=== PATIENT | male | born 1955 | race Caucasian/White ===

== ENCOUNTER → 2016-12-10 | Outpatient (CLI) | payer OTHER ==
[2015-08-01 15:26] VITALS: BP 128/78
[~2016-12-10] MED LIST: IRON90 MG PO; MICARDIS80 MG PO
== END ==
LOC: LAB 11:39
DX: Z02.4 Encounter for examination for driving license (principal); I10 Essential (primary) hypertension; N05.9 Unspecified nephritic syndrome with unspecified morphologic changes

== ENCOUNTER → 2018-02-15 | Outpatient (CLI) | payer BC ==
[2015-08-01 15:26] VITALS: BP 128/78
[2018-02-15 10:27] LABS: URINE WBC 0 /hpf (0-3)
[2018-02-15 10:51] LABS: HEMATOCRIT 34.3 % (42.0-52.0); HEMOGLOBIN 11.5 g/dL (13.5-18.0); MEAN CELL VOLUME 88 fl (78-100); MEAN CORPUSCULAR HEMOGLOBIN 30 pg (27-31); MEAN CORPUSCULAR HGB CONC 34 g/dL (33-37); PLATELET COUNT 427 K/mm3 (130-400); RED BLOOD COUNT 3.89 M/mm3 (4.20-5.60); RED CELL DISTRIBUTION WIDTH 13.3 % (11.5-14.5); WHITE BLOOD COUNT 8.7 K/mm3 (4.8-10.8)
[2018-02-15 10:52] LABS: CALCIUM 9.9 mg/dL (8.4-10.2)
[2018-02-15 11:07] LABS: URINE APPEARANCE CLEAR; URINE BILIRUBIN NEGATIVE (NEGATIVE); URINE BLOOD 250 ery/uL (NEGATIVE); URINE COLOR YELLOW; URINE GLUCOSE NEGATIVE (NEGATIVE); URINE KETONE NEGATIVE (NEGATIVE); URINE LEUKOCYTE ESTERASE NEGATIVE (NEGATIVE); URINE NITRATE NEGATIVE (NEGATIVE); URINE PROTEIN(semi-quant) NEGATIVE (NEGATIVE); URINE UROBILINOGEN NORMAL (NORMAL)
[2018-02-15 11:33] LABS: BAND 3 % (0-10); LYMPHOCYTE 11 % (20-51); MONOCYTE 5 % (3-10); NEUTROPHILS 81 % (42-75)
== END ==
LOC: LAB 10:14
PROVIDERS: Physician Assistant
DX: N05.9 Unspecified nephritic syndrome with unspecified morphologic changes (principal); R31.29 Other microscopic hematuria; M06.4 Inflammatory polyarthropathy

== ENCOUNTER → 2018-06-10 | Outpatient (CLI) | payer BC ==
[2015-08-01 15:26] VITALS: BP 128/78
== END ==
LOC: RAD 10:54
DX: M17.0 Bilateral primary osteoarthritis of knee (principal); R60.0 Localized edema; N03.9 Chronic nephritic syndrome with unspecified morphologic changes

== ENCOUNTER → 2018-12-07 | Outpatient (CLI) | payer BC ==
[2018-08-15 12:05] VITALS: BP 161/81
[~2018-12-07] MED LIST changes: +NORVASC 10MG10 MG PO; +PREDNISONE20 M1 PO
[2018-12-07 11:38] LABS: EOS % 0.6 % (0.0-4.0); HEMATOCRIT 33.2 % (42.0-52.0); HEMOGLOBIN 10.8 g/dL (13.5-18.0); LYMPH# 0.8 (1.50-4.00); MEAN CELL VOLUME 83 fl (78-100); MEAN CORPUSCULAR HEMOGLOBIN 27 pg (27-31); MEAN CORPUSCULAR HGB CONC 33 g/dL (33-37); MONO # 0.6 (0.20-0.80); NEU # 4.8 (1.40-6.50); PLATELET COUNT 491 K/mm3 (130-400); RED BLOOD COUNT 4.01 M/mm3 (4.20-5.60); RED CELL DISTRIBUTION WIDTH 14.9 % (11.5-14.5); WHITE BLOOD COUNT 6.3 K/mm3 (4.8-10.8)
[2018-12-07 11:48] LABS: POTASSIUM 4.9 mmol/L (3.5-5.1)
[2018-12-07 11:50] LABS: TOTAL PROTEIN 7.8 g/dL (6.2-8.1)
[2018-12-07 11:52] LABS: TOTAL BILIRUBIN 0.3 mg/dL (0.2-1.2)
== END ==
LOC: LAB 11:21
PROVIDERS: Physician Assistant
DX: R60.0 Localized edema (principal); R53.83 Other fatigue; R05 Cough

== ENCOUNTER → 2018-12-21 | Outpatient (CLI) | payer BC ==
[2018-08-15 12:05] VITALS: BP 161/81
[2018-12-21 09:31] LABS: POTASSIUM 4.7 mmol/L (3.5-5.1)
[2018-12-21 09:32] LABS: CALCIUM 10.7 mg/dL (8.3-10.5)
== END ==
LOC: LAB 09:09
PROVIDERS: Physician Assistant
DX: E87.1 Hypo-osmolality and hyponatremia (principal); R60.0 Localized edema; R53.83 Other fatigue

== ENCOUNTER → 2019-02-08 | Outpatient (CLI) | payer BC ==
[2018-08-15 12:05] VITALS: BP 161/81
[2019-02-08 11:26] LABS: HEMATOCRIT 31.9 % (42.0-52.0); HEMOGLOBIN 10.6 g/dL (13.5-18.0)
[2019-02-08 11:36] LABS: POTASSIUM 4.2 mmol/L (3.5-5.1)
[2019-02-08 11:47] LABS: URINE APPEARANCE CLEAR; URINE COLOR YELLOW
[2019-02-08 11:48] LABS: URINE BILIRUBIN NEGATIVE (NEGATIVE); URINE BLOOD 250 ery/uL (NEGATIVE); URINE GLUCOSE NEGATIVE (NEGATIVE); URINE KETONE NEGATIVE (NEGATIVE); URINE LEUKOCYTE ESTERASE NEGATIVE (NEGATIVE); URINE MUCUS PRESENT (NOT PRESENT); URINE NITRATE NEGATIVE (NEGATIVE); URINE PROTEIN(semi-quant) NEGATIVE (NEGATIVE); URINE UROBILINOGEN NORMAL (NORMAL); URINE WBC 0-1 /hpf (0-3)
[2019-02-09 00:06] LABS: CREATININE OTHER SOURCE 16 mg/dL (())
== END ==
LOC: LAB 11:14
PROVIDERS: Internal Medicine Nephrology
DX: I15.8 Other secondary hypertension (principal); D50.9 Iron deficiency anemia, unspecified

== ENCOUNTER → 2019-05-06 | Outpatient (CLI) | payer BC ==
[2018-08-15 12:05] VITALS: BP 161/81
[2019-05-06 10:28] LABS: HEMOGLOBIN 11.6 g/dL (13.5-18.0); MEAN CELL VOLUME 88 fl (78-100); MEAN CORPUSCULAR HEMOGLOBIN 28 pg (27-31); MEAN CORPUSCULAR HGB CONC 32 g/dL (33-37); MEAN PLATELET VOLUME 8.7 fl (7.4-10.4); PLATELET COUNT 379 K/mm3 (130-400); RED BLOOD COUNT 4.11 M/mm3 (4.20-5.60); WHITE BLOOD COUNT 8.3 K/mm3 (4.8-10.8)
[2019-05-06 10:49] LABS: LYMPHOCYTE 9 % (20-51); MONOCYTE 7 % (3-10); NEUTROPHILS 83 % (42-75)
== END ==
LOC: LAB 10:04
PROVIDERS: Physician Assistant
DX: R05 Cough (principal)

== ENCOUNTER 2019-05-24 11:42 | Emergency (ER) | payer BC ==
[~2019-05-24] VITALS: Ht 177.8 cm; Wt 100.0 kg
[2019-05-24 12:46] LABS: HEMATOCRIT 34.6 % (42.0-52.0); HEMOGLOBIN 11.8 g/dL (13.5-18.0); MEAN CELL VOLUME 85 fl (78-100); MEAN CORPUSCULAR HEMOGLOBIN 29 pg (27-31); MEAN CORPUSCULAR HGB CONC 34 g/dL (33-37); MEAN PLATELET VOLUME 8.3 fl (7.4-10.4); PLATELET COUNT 411 K/mm3 (130-400); RED BLOOD COUNT 4.07 M/mm3 (4.20-5.60); RED CELL DISTRIBUTION WIDTH 15.4 % (11.5-14.5); WHITE BLOOD COUNT 10.2 K/mm3 (4.8-10.8)
[2019-05-24 12:56] LABS: ALBUMIN 4.1 g/dL (3.4-4.8); POTASSIUM 4.7 mmol/L (3.5-5.1); SODIUM 128 mmol/L (136-145)
[2019-05-24 12:57] LABS: CALCIUM 9.7 mg/dL (8.3-10.5)
[2019-05-24 12:58] LABS: GLUCOSE 90 mg/dL (75-110); TOTAL PROTEIN 7.7 g/dL (6.2-8.1)
[2019-05-24 12:59] LABS: CARBON DIOXIDE 18 mmol/L (23-31)
[2019-05-24 13:00] LABS: TOTAL BILIRUBIN 0.3 mg/dL (0.2-1.2)
[2019-05-24 13:04] LABS: AST-SGOT 25 U/L (5-34)
[2019-05-24 13:05] LABS: ALT/SGPT 16 U/L (0-55); LYMPHOCYTE 10 % (20-51); MONOCYTE 7 % (3-10); NEUTROPHILS 83 % (42-75)
[2019-05-24 13:12] LABS: TROPONIN-I < 0.03 ng/mL (<0.030)
[2019-05-24 14:00] VITALS: BP 140/74
== END 2019-05-24 13:59 | disposition home or self-care (01) ==
LOC: ED 11:42
PROVIDERS: Nurse Practitioner Family
DX: E87.1 Hypo-osmolality and hyponatremia (principal); R55 Syncope and collapse; I10 Essential (primary) hypertension

== ENCOUNTER → 2019-07-19 | Outpatient (CLI) | payer BC ==
[2019-07-19 11:40] LABS: HEMATOCRIT 34.3 % (42.0-52.0); HEMOGLOBIN 11.5 g/dL (13.5-18.0); MEAN CELL VOLUME 86 fl (78-100); MEAN CORPUSCULAR HEMOGLOBIN 29 pg (27-31); MEAN CORPUSCULAR HGB CONC 34 g/dL (33-37); MEAN PLATELET VOLUME 8.3 fl (7.4-10.4); RED CELL DISTRIBUTION WIDTH 12.9 % (11.5-14.5); WHITE BLOOD COUNT 8.8 K/mm3 (4.8-10.8)
[2019-07-19 11:44] LABS: ALBUMIN 4.1 g/dL (3.4-4.8)
[2019-07-19 11:45] LABS: POTASSIUM 4.5 mmol/L (3.5-5.1)
[2019-07-19 11:46] LABS: CALCIUM 9.7 mg/dL (8.3-10.5)
[2019-07-19 11:47] LABS: TOTAL PROTEIN 8.2 g/dL (6.2-8.1)
[2019-07-19 11:49] LABS: TOTAL BILIRUBIN 0.3 mg/dL (0.2-1.2)
[2019-07-19 11:56] LABS: URINE APPEARANCE CLEAR; URINE COLOR YELLOW; URINE PROTEIN(semi-quant) TRACE mg/dL (NEGATIVE)
[2019-07-19 11:57] LABS: URINE BILIRUBIN NEGATIVE (NEGATIVE); URINE BLOOD 250 ery/uL (NEGATIVE); URINE GLUCOSE NEGATIVE (NEGATIVE); URINE KETONE NEGATIVE (NEGATIVE); URINE LEUKOCYTE ESTERASE NEGATIVE (NEGATIVE); URINE NITRATE NEGATIVE (NEGATIVE); URINE UROBILINOGEN NORMAL (NORMAL)
[2019-07-19 12:00] LABS: PLATELET COUNT 514 K/mm3 (130-400)
[2019-07-19 12:11] LABS: BAND 2 % (0-10); LYMPHOCYTE 12 % (20-51); MONOCYTE 10 % (3-10); NEUTROPHILS 75 % (42-75); PROTHROMBIN TIME 9.6 SECONDS (9.0-12.0)
== END ==
LOC: AMSURD 11:11
PROVIDERS: Physician Assistant
DX: Z01.818 Encounter for other preprocedural examination (principal); M17.11 Unilateral primary osteoarthritis, right knee; I10 Essential (primary) hypertension; M10.9 Gout, unspecified; N03.9 Chronic nephritic syndrome with unspecified morphologic changes

== ENCOUNTER → 2019-08-04 | Outpatient (CLI) | payer BC | LOC: PT 09:53 | DX: Z47.1 Aftercare following joint replacement surgery (principal); Z96.651 Presence of right artificial knee joint ==

== ENCOUNTER 2019-10-04 09:30 | Outpatient (RCR) | payer BC | END 2019-10-04 10:00 | disposition still patient (30) | LOC: PT 09:30 | DX: M25.561 Pain in right knee (principal); Z96.651 Presence of right artificial knee joint; Z98.890 Other specified postprocedural states ==

== ENCOUNTER → 2019-12-27 | Outpatient (CLI) | payer BC ==
[2019-12-27 10:27] LABS: EOS # 0.1 (0.04-0.40); HEMATOCRIT 34.9 % (42.0-52.0); HEMOGLOBIN 11.6 g/dL (13.5-18.0); MEAN CELL VOLUME 81 fl (78-100); MEAN CORPUSCULAR HEMOGLOBIN 27 pg (27-31); MEAN CORPUSCULAR HGB CONC 33 g/dL (33-37); MEAN PLATELET VOLUME 7.8 fl (7.4-10.4); MONO # 0.5 (0.20-0.80); NEU # 3.7 (1.40-6.50); PLATELET COUNT 480 K/mm3 (130-400); RED CELL DISTRIBUTION WIDTH 14.8 % (11.5-14.5); WHITE BLOOD COUNT 5.2 K/mm3 (4.8-10.8)
[2019-12-27 10:34] LABS: ALBUMIN 4.5 g/dL (3.4-4.8)
[2019-12-27 10:35] LABS: POTASSIUM 4.5 mmol/L (3.5-5.1)
[2019-12-27 10:36] LABS: CALCIUM 10.3 mg/dL (8.3-10.5)
[2019-12-27 10:37] LABS: TOTAL PROTEIN 8.9 g/dL (6.2-8.1)
[2019-12-27 10:39] LABS: TOTAL BILIRUBIN 0.4 mg/dL (0.2-1.2)
[2019-12-27 10:41] LABS: LYMPH# 0.7 (1.50-4.00)
[2019-12-27 10:42] LABS: PROTHROMBIN TIME 9.3 SECONDS (9.0-12.0)
[2019-12-27 10:46] LABS: URINE APPEARANCE CLEAR; URINE BILIRUBIN NEGATIVE (NEGATIVE); URINE BLOOD 250 ery/uL (NEGATIVE); URINE COLOR YELLOW; URINE GLUCOSE NEGATIVE (NEGATIVE); URINE KETONE NEGATIVE (NEGATIVE); URINE LEUKOCYTE ESTERASE NEGATIVE (NEGATIVE); URINE NITRATE NEGATIVE (NEGATIVE); URINE PROTEIN(semi-quant) NEGATIVE (NEGATIVE); URINE UROBILINOGEN NORMAL (NORMAL); URINE WBC 0-1 /hpf (0-3)
== END ==
LOC: LAB 09:30
PROVIDERS: Orthopaedic Surgery
DX: Z01.818 Encounter for other preprocedural examination (principal); M17.12 Unilateral primary osteoarthritis, left knee; M19.90 Unspecified osteoarthritis, unspecified site

== ENCOUNTER → 2020-01-03 | Outpatient (CLI) | payer BC ==
[2020-01-03 09:41] LABS: POTASSIUM 5.1 mmol/L (3.5-5.1)
== END ==
LOC: LAB 09:15
PROVIDERS: Physician Assistant
DX: E87.1 Hypo-osmolality and hyponatremia (principal)

== ENCOUNTER → 2020-02-16 | Outpatient (CLI) | payer BC ==
[2020-02-16 14:01] LABS: HEMATOCRIT 30.4 % (42.0-52.0); MEAN CELL VOLUME 83 fl (78-100); MEAN CORPUSCULAR HEMOGLOBIN 27 pg (27-31); MEAN CORPUSCULAR HGB CONC 33 g/dL (33-37); MEAN PLATELET VOLUME 7.9 fl (7.4-10.4); PLATELET COUNT 449 K/mm3 (130-400); RED BLOOD COUNT 3.68 M/mm3 (4.20-5.60); RED CELL DISTRIBUTION WIDTH 14.3 % (11.5-14.5); WHITE BLOOD COUNT 8.5 K/mm3 (4.8-10.8)
[2020-02-16 14:15] LABS: LYMPHOCYTE 10 % (20-51); MONOCYTE 7 % (3-10); NEUTROPHILS 83 % (42-75)
[2020-02-16 15:14] LABS: POTASSIUM 4.8 mmol/L (3.5-5.1)
[2020-02-16 15:15] LABS: CALCIUM 9.8 mg/dL (8.3-10.5)
== END ==
LOC: LAB 13:40
PROVIDERS: Internal Medicine Nephrology
DX: N05.9 Unspecified nephritic syndrome with unspecified morphologic changes (principal); M10.9 Gout, unspecified

== ENCOUNTER → 2020-02-24 | Outpatient (CLI) | payer BC | LOC: LAB 07:55 | DX: M79.10 Myalgia, unspecified site (principal); R19.7 Diarrhea, unspecified; Z20.828 Contact with and (suspected) exposure to other viral communicable diseases ==

== ENCOUNTER 2020-02-28 13:00 | Outpatient (RCR) | payer BC | END 2020-02-28 13:30 | disposition still patient (30) | LOC: PT 13:00 | DX: M25.562 Pain in left knee (principal); Z96.652 Presence of left artificial knee joint ==

== ENCOUNTER → 2020-06-18 | Outpatient (CLI) | payer BC ==
[2020-06-18 10:09] LABS: EOS # 0.1 (0.04-0.40); EOS % 1.3 % (0.0-4.0); HEMATOCRIT 36.2 % (42.0-52.0); HEMOGLOBIN 11.3 g/dL (13.5-18.0); MEAN CELL VOLUME 84 fl (78-100); MEAN CORPUSCULAR HEMOGLOBIN 26 pg (27-31); MEAN CORPUSCULAR HGB CONC 31 g/dL (33-37); MEAN PLATELET VOLUME 8.7 fl (7.4-10.4); MONO # 0.3 (0.20-0.80); NEU # 3.2 (1.40-6.50); PLATELET COUNT 398 K/mm3 (130-400); RED BLOOD COUNT 4.29 M/mm3 (4.20-5.60); RED CELL DISTRIBUTION WIDTH 14.6 % (11.5-14.5); WHITE BLOOD COUNT 4.7 K/mm3 (4.8-10.8)
[2020-06-18 10:11] LABS: ALBUMIN 4.1 g/dL (3.4-4.8); POTASSIUM 4.1 mmol/L (3.5-5.1)
[2020-06-18 10:12] LABS: CALCIUM 9.7 mg/dL (8.3-10.5)
[2020-06-18 10:15] LABS: TOTAL BILIRUBIN 0.4 mg/dL (0.2-1.2)
== END ==
LOC: LAB 09:39
PROVIDERS: Physician Assistant
DX: Z00.00 Encounter for general adult medical examination without abnormal findings (principal); Z13.29 Encounter for screening for other suspected endocrine disorder; Z12.5 Encounter for screening for malignant neoplasm of prostate; E78.5 Hyperlipidemia, unspecified

== ENCOUNTER 2020-09-25 15:19 | Emergency (ER) | payer BC ==
[2020-09-25 16:15] LABS: HEMATOCRIT 30.9 % (42.0-52.0); HEMOGLOBIN 10.3 g/dL (13.5-18.0); MEAN CELL VOLUME 79 fl (78-100); MEAN CORPUSCULAR HEMOGLOBIN 26 pg (27-31); MEAN CORPUSCULAR HGB CONC 33 g/dL (33-37); MEAN PLATELET VOLUME 8.8 fl (7.4-10.4); PLATELET COUNT 368 K/mm3 (130-400); RED BLOOD COUNT 3.92 M/mm3 (4.20-5.60); RED CELL DISTRIBUTION WIDTH 13.8 % (11.5-14.5); WHITE BLOOD COUNT 7.2 K/mm3 (4.8-10.8)
[2020-09-25 16:25] LABS: ALBUMIN 3.9 g/dL (3.4-4.8); POTASSIUM 4.5 mmol/L (3.5-5.1); SODIUM 130 mmol/L (136-145)
[2020-09-25 16:27] LABS: CALCIUM 9.5 mg/dL (8.3-10.5)
[2020-09-25 16:28] LABS: GLUCOSE 86 mg/dL (75-110); TOTAL PROTEIN 7.8 g/dL (6.2-8.1)
[2020-09-25 16:29] LABS: CARBON DIOXIDE 21 mmol/L (23-31); TOTAL BILIRUBIN 0.3 mg/dL (0.2-1.2)
[2020-09-25 16:33] LABS: AST-SGOT 20 U/L (5-34)
[2020-09-25 16:34] LABS: ALT/SGPT 12 U/L (0-55)
[2020-09-25 16:48] LABS: TROPONIN-I < 0.03 ng/mL (<0.030)
[2020-09-25 17:39] LABS: PH-URINE 5.5 (5.0 - 8.0); URINE APPEARANCE HAZY; URINE BILIRUBIN NEGATIVE (NEGATIVE); URINE BLOOD 250 ery/uL (NEGATIVE); URINE COLOR YELLOW; URINE GLUCOSE NEGATIVE (NEGATIVE); URINE KETONE NEGATIVE (NEGATIVE); URINE LEUKOCYTE ESTERASE NEGATIVE (NEGATIVE); URINE NITRATE NEGATIVE (NEGATIVE); URINE PROTEIN(semi-quant) TRACE mg/dL (NEGATIVE); URINE UROBILINOGEN NORMAL (NORMAL); URINE WBC 0-1 /hpf (0-3)
[2020-09-25 17:40] LABS: LYMPHOCYTE 11 % (20-51); MONOCYTE 4 % (3-10); NEUTROPHILS 85 % (42-75)
[2020-09-25 17:41] LABS: D-DIMER 2.55 mg/L FEU (0.15-0.50)
[2020-09-25 18:58] VITALS: BP 130/76
== END 2020-09-25 19:13 | disposition home or self-care (01) ==
LOC: ED 15:19
PROVIDERS: Nurse Practitioner Family
DX: R55 Syncope and collapse (principal); D50.9 Iron deficiency anemia, unspecified; E87.1 Hypo-osmolality and hyponatremia; R94.6 Abnormal results of thyroid function studies; Z20.822 Contact with and (suspected) exposure to COVID-19; Z79.899 Other long term (current) drug therapy
CPT/HCPCS: J7120; Q9967

== ENCOUNTER → 2020-10-04 | Outpatient (CLI) | payer BC ==
[2020-09-25 18:58] VITALS: BP 130/76
== END ==
LOC: RAD 14:50
DX: R55 Syncope and collapse (principal); Z18.9 Retained foreign body fragments, unspecified material
CPT/HCPCS: A9585

== ENCOUNTER → 2020-10-16 | Outpatient (CLI) | payer BC ==
[2020-09-25 18:58] VITALS: BP 130/76
== END ==
LOC: VAS 14:37 → RAD 15:00
DX: R55 Syncope and collapse (principal)

== ENCOUNTER → 2021-02-11 | Outpatient (CLI) | payer BC ==
[2021-02-11 12:26] LABS: POTASSIUM 4.4 mmol/L (3.5-5.1)
[2021-02-11 12:27] LABS: CALCIUM 10.3 mg/dL (8.3-10.5)
== END ==
LOC: LAB 11:19
PROVIDERS: Internal Medicine Nephrology
DX: D50.9 Iron deficiency anemia, unspecified (principal); R80.9 Proteinuria, unspecified; I15.8 Other secondary hypertension

== ENCOUNTER 2021-03-05 09:01 | Outpatient (RCR) | payer BC | END 2021-06-03 | disposition home or self-care (01) | LOC: PT | DX: Z96.659 Presence of unspecified artificial knee joint (principal) ==

== ENCOUNTER 2021-04-02 10:55 | Outpatient (RCR) | payer MEDICARE | END 2021-04-16 17:00 | disposition home or self-care (01) | LOC: PT 10:55 | DX: Z96.659 Presence of unspecified artificial knee joint (principal) ==

== ENCOUNTER → 2021-09-03 | Outpatient (CLI) | payer MEDICARE ==
[2021-09-03 16:59] LABS: BASO # 0.03 K/mm3 (0.02-0.10); EOS # 0.08 K/mm3 (0.04-0.40); EOS % 1.1 % (0.0-4.0); HEMATOCRIT 36.7 % (42.0-52.0); LYMPH# 1.29 K/mm3 (1.50-4.00); MEAN CELL VOLUME 85 fl (78-100); MEAN CORPUSCULAR HEMOGLOBIN 28 pg (27-31); MEAN CORPUSCULAR HGB CONC 33 g/dL (33-37); MEAN PLATELET VOLUME 8.6 fl (7.4-10.4); MONO # 0.45 K/mm3 (0.20-0.80); NEU # 5.58 K/mm3 (1.40-6.50); PLATELET COUNT 312 K/mm3 (130-400); RED BLOOD COUNT 4.31 M/mm3 (4.20-5.60); RED CELL DISTRIBUTION WIDTH 14.3 % (11.5-14.5); WHITE BLOOD COUNT 7.5 K/mm3 (4.8-10.8)
[2021-09-03 17:20] LABS: POTASSIUM 4.5 mmol/L (3.5-5.1)
[2021-09-03 17:21] LABS: ALBUMIN 4.6 g/dL (3.4-4.8)
[2021-09-03 17:22] LABS: CALCIUM 10.2 mg/dL (8.3-10.5)
[2021-09-03 17:23] LABS: TOTAL PROTEIN 8.4 g/dL (6.2-8.1)
[2021-09-03 17:25] LABS: TOTAL BILIRUBIN 0.5 mg/dL (0.2-1.2)
== END ==
LOC: LAB 16:37
PROVIDERS: Physician Assistant
DX: Z00.00 Encounter for general adult medical examination without abnormal findings (principal); Z13.1 Encounter for screening for diabetes mellitus; Z12.5 Encounter for screening for malignant neoplasm of prostate; Z13.29 Encounter for screening for other suspected endocrine disorder; D64.9 Anemia, unspecified; I10 Essential (primary) hypertension; K90.9 Intestinal malabsorption, unspecified; E87.1 Hypo-osmolality and hyponatremia; N08 Glomerular disorders in diseases classified elsewhere; M10.9 Gout, unspecified; E78.5 Hyperlipidemia, unspecified; G47.33 Obstructive sleep apnea (adult) (pediatric); M19.90 Unspecified osteoarthritis, unspecified site

== ENCOUNTER → 2021-12-09 | Outpatient (CLI) | payer MEDICARE ==
[2021-12-09 15:11] LABS: HEMATOCRIT 34.1 % (42.0-52.0); HEMOGLOBIN 11.6 g/dL (13.5-18.0); MEAN PLATELET VOLUME 8.5 fl (7.4-10.4); RED BLOOD COUNT 4.03 M/mm3 (4.20-5.60); RED CELL DISTRIBUTION WIDTH 13.3 % (11.5-14.5); WHITE BLOOD COUNT 8.3 K/mm3 (4.8-10.8)
[2021-12-09 15:17] LABS: POTASSIUM 4.1 mmol/L (3.5-5.1)
[2021-12-09 15:18] LABS: CALCIUM 9.5 mg/dL (8.3-10.5)
[2021-12-09 15:20] LABS: TOTAL PROTEIN 7.1 g/dL (6.2-8.1)
[2021-12-09 15:21] LABS: TOTAL BILIRUBIN 0.4 mg/dL (0.2-1.2)
== END ==
LOC: LAB 14:52
PROVIDERS: Urology
DX: C61 Malignant neoplasm of prostate (principal)

== ENCOUNTER → 2022-01-27 | Outpatient (CLI) | payer MEDICARE | LOC: LAB 12:29 | DX: C61 Malignant neoplasm of prostate (principal) ==

== ENCOUNTER → 2022-02-20 | Outpatient (CLI) | payer MEDICARE ==
[2022-02-20 09:27] LABS: POTASSIUM 4.6 mmol/L (3.5-5.1)
[2022-02-20 09:28] LABS: CALCIUM 9.8 mg/dL (8.3-10.5)
== END ==
LOC: LAB 02-19 09:17
PROVIDERS: Internal Medicine Nephrology
DX: R80.9 Proteinuria, unspecified (principal); R31.29 Other microscopic hematuria; M06.4 Inflammatory polyarthropathy; J91.8 Pleural effusion in other conditions classified elsewhere; I15.8 Other secondary hypertension

== ENCOUNTER → 2022-04-15 | Outpatient (CLI) | payer MEDICARE | LOC: RAD 15:47 | DX: Z01.818 Encounter for other preprocedural examination (principal); M21.611 Bunion of right foot; M20.61 Acquired deformities of toe(s), unspecified, right foot; M19.071 Primary osteoarthritis, right ankle and foot; M10.9 Gout, unspecified ==

== ENCOUNTER → 2022-05-06 | Outpatient (CLI) | payer MEDICARE | LOC: LAB 11:14 | DX: C61 Malignant neoplasm of prostate (principal); R97.20 Elevated prostate specific antigen [PSA] ==

== ENCOUNTER → 2022-07-29 | Outpatient (CLI) | payer MEDICARE | LOC: LAB 14:32 | DX: C61 Malignant neoplasm of prostate (principal) ==

== ENCOUNTER → 2023-06-03 | Outpatient (CLI) | payer MEDICARE | LOC: LAB 10:20 | DX: Z85.46 Personal history of malignant neoplasm of prostate (principal) ==

== ENCOUNTER → 2023-08-21 | Outpatient (CLI) | payer MEDICARE | LOC: RAD 10:09 | DX: R10.2 Pelvic and perineal pain (principal) ==

== ENCOUNTER → 2023-11-03 | Outpatient (CLI) | payer MEDICARE | LOC: RAD 13:41 | DX: M16.12 Unilateral primary osteoarthritis, left hip (principal) ==

== ENCOUNTER → 2023-11-24 | Outpatient (CLI) | payer MEDICARE ==
[2023-11-24 10:53] LABS: BASO # 0.04 K/mm3 (0.02-0.10); EOS % 1.4 % (0.0-4.0); HEMATOCRIT 38.8 % (42.0-52.0); HEMOGLOBIN 12.9 g/dL (13.5-18.0); LYMPH# 1.58 K/mm3 (1.50-4.00); MEAN CELL VOLUME 90 fl (78-100); MEAN CORPUSCULAR HEMOGLOBIN 30 pg (27-31); MEAN CORPUSCULAR HGB CONC 33 g/dL (33-37); MEAN PLATELET VOLUME 8.8 fl (7.4-10.4); MONO # 0.52 K/mm3 (0.20-0.80); NEU # 5.13 K/mm3 (1.40-6.50); PLATELET COUNT 293 K/mm3 (130-400); RED BLOOD COUNT 4.32 M/mm3 (4.20-5.60); WHITE BLOOD COUNT 7.4 K/mm3 (4.8-10.8)
[2023-11-24 11:04] LABS: ALBUMIN 4.6 g/dL (3.4-4.8)
[2023-11-24 11:06] LABS: TOTAL PROTEIN 7.7 g/dL (6.2-8.1)
[2023-11-24 11:08] LABS: TOTAL BILIRUBIN 0.6 mg/dL (0.2-1.2)
== END ==
LOC: LAB 10:40
PROVIDERS: Physician Assistant
DX: Z13.1 Encounter for screening for diabetes mellitus (principal); I10 Essential (primary) hypertension; M10.9 Gout, unspecified; E78.5 Hyperlipidemia, unspecified; D64.9 Anemia, unspecified; R97.20 Elevated prostate specific antigen [PSA]

== ENCOUNTER → 2023-12-14 | Outpatient (CLI) | payer MEDICARE | LOC: RAD 10:54 → MAMMO 11:00 | DX: Z13.820 Encounter for screening for osteoporosis (principal) ==

== ENCOUNTER → 2024-02-16 | Outpatient (CLI) | payer MEDICARE ==
[2024-02-16 16:58] LABS: CALCIUM 10.6 mg/dL (8.3-10.5)
== END ==
LOC: LAB 16:34
PROVIDERS: Internal Medicine Nephrology
DX: M06.4 Inflammatory polyarthropathy (principal); R80.9 Proteinuria, unspecified; J91.8 Pleural effusion in other conditions classified elsewhere; I15.8 Other secondary hypertension

== ENCOUNTER → 2024-03-03 | Outpatient (CLI) | payer MEDICARE ==
[2024-03-03 14:25] LABS: BASO # 0.03 K/mm3 (0.02-0.10); EOS # 0.11 K/mm3 (0.04-0.40); EOS % 1.7 % (0.0-4.0); HEMATOCRIT 37.4 % (42.0-52.0); HEMOGLOBIN 12.5 g/dL (13.5-18.0); LYMPH# 1.42 K/mm3 (1.50-4.00); MEAN CELL VOLUME 90 fl (78-100); MEAN CORPUSCULAR HEMOGLOBIN 30 pg (27-31); MEAN CORPUSCULAR HGB CONC 33 g/dL (33-37); MEAN PLATELET VOLUME 9.2 fl (7.4-10.4); MONO # 0.46 K/mm3 (0.20-0.80); NEU # 4.45 K/mm3 (1.40-6.50); PLATELET COUNT 293 K/mm3 (130-400); RED BLOOD COUNT 4.15 M/mm3 (4.20-5.60); RED CELL DISTRIBUTION WIDTH 14.2 % (11.5-14.5); WHITE BLOOD COUNT 6.5 K/mm3 (4.8-10.8)
[2024-03-03 14:26] LABS: ALBUMIN 4.7 g/dL (3.4-4.8)
[2024-03-03 14:28] LABS: CALCIUM 10.2 mg/dL (8.3-10.5)
[2024-03-03 14:29] LABS: TOTAL PROTEIN 7.9 g/dL (6.2-8.1)
[2024-03-03 14:31] LABS: TOTAL BILIRUBIN 0.5 mg/dL (0.2-1.2)
[2024-03-03 15:18] LABS: PARTIAL THROMBOPLASTIN TIME 25.4 SECONDS (21.0-32.0); PROTHROMBIN TIME 9.7 SECONDS (9.0-12.0)
[2024-03-03 15:27] LABS: URINE APPEARANCE CLEAR (CLEAR); URINE COLOR YELLOW (YELLOW)
[2024-03-03 15:28] LABS: PH-URINE 5.5 (5.0 - 8.0); URINE BILIRUBIN NEGATIVE (NEGATIVE); URINE BLOOD 2+ (NEGATIVE); URINE GLUCOSE NEGATIVE (NEGATIVE); URINE KETONE NEGATIVE (NEGATIVE); URINE LEUKOCYTE ESTERASE NEGATIVE (NEGATIVE); URINE NITRATE NEGATIVE (NEGATIVE); URINE PROTEIN(semi-quant) NEGATIVE (NEGATIVE); URINE WBC 0-1 /hpf (0-3)
== END ==
LOC: LAB 13:56
PROVIDERS: Physician Assistant
DX: Z01.811 Encounter for preprocedural respiratory examination (principal); Z01.810 Encounter for preprocedural cardiovascular examination; R94.31 Abnormal electrocardiogram [ECG] [EKG]

== ENCOUNTER 2024-03-28 14:21 | Outpatient (RCR) | payer MEDICARE | END 2024-03-31 | disposition home or self-care (01) | LOC: PT | DX: Z96.642 Presence of left artificial hip joint (principal) ==

== ENCOUNTER → 2024-05-30 | Outpatient (CLI) | payer MEDICARE | LOC: LAB 15:53 | DX: Z85.46 Personal history of malignant neoplasm of prostate (principal) ==